=== PATIENT | female | born 1960 | race Caucasian/White ===

== ENCOUNTER 2019-01-01 12:48 | Outpatient (CLI) | payer BC | END 2019-01-01 23:59 | disposition home or self-care (01) | LOC: RAD 12:48 | PROVIDERS: ATTEND Nurse Practitioner Family | DX: K21.9 Gastro-esophageal reflux disease without esophagitis (principal); R13.14 Dysphagia, pharyngoesophageal phase; K22.8 Other specified diseases of esophagus; Z85.850 Personal history of malignant neoplasm of thyroid | CPT/HCPCS: 74230 ==